=== PATIENT | female | born 1965 | race Caucasian/White ===

== ENCOUNTER 2019-03-25 22:17 | Emergency (ER) | payer OTHER ==
[~2019-03-25] VITALS: Ht 160 cm; Wt 58.6 kg
[~2019-03-25 22:17] MED LIST: TYLENOL 325MG325 MG PO; [UNRECOGNIZED DRUG - OTHER]; [UNRECOGNIZED DRUG - OTHER]
[2019-03-25 22:19] VITALS: TEMP 97.6
[2019-03-25 22:48] LABS: COLLECTION METHOD CLEAN CATCH
[2019-03-25 22:51] LABS: BASO % 0.3 % (0.0-2.0); EOS % 0.2 % (0-4.0); GRAN # 6.4 (1.4-6.5); GRAN % 72.4 % (42.2-75.2); HEMOGLOBIN 13.9 g/dl (12.5-16.0); LYMPH # 1.7 (1.2-3.4); LYMPH % 19.5 % (20.0-51.0); MEAN CELL VOLUME 81 fl (80.0-100.0); MEAN CORPUSCULAR HEMOGLOBIN 26 pg (27.0-31.0); MEAN CORPUSCULAR HGB CONC 32 g/dl (33.0-37.0); MEAN PLATELET VOLUME 13.6 fl (7.4-10.4); MONO # 0.7 (0.1-0.6); MONO % 7.4 % (1.7-9.3); RED BLOOD COUNT 5.29 M/mm3 (4.10-5.30); REDCELL DISTRIBUTION WIDTH-CV 13.9 % (11.5-14.5)
[2019-03-25 22:55] LABS: PH 7 (5-8); SQUAMOUS EPITHELIAL 0-2 /hpf; URINE APPEARANCE Clear; URINE BACTERIA None Seen /hpf; URINE BILIRUBIN Negative (NEGATIVE); URINE BLOOD 3+ (NEGATIVE); URINE COLOR Straw; URINE GLUCOSE Negative (NEGATIVE); URINE KETONE Negative (NEGATIVE); URINE LEUKOCYTE ESTERASE Negative (NEGATIVE); URINE NITRATE Negative (NEGATIVE); URINE PROTEIN(semi-quant) Negative (NEGATIVE); URINE RBC 0-2 /hpf; URINE UROBILINOGEN Negative (NEGATIVE)
[2019-03-25 23:04] LABS: ALANINE AMINOTRANSFERASE 25 U/L (9-52); ALBUMIN 4.2 gm/dL (3.5-5.0); ALKALINE PHOSPHATASE 63 U/L (50-136); ANION GAP 12 mmol/L (7-16); AST,SGOT 27 U/L (15-37); BILIRUBIN,TOTAL 0.9 mg/dL (0.0-1.0); BLOOD UREA NITROGEN 13 mg/dL (7-17); CALCIUM 9.4 mg/dL (8.4-10.2); CARBON DIOXIDE 24 mmol/L (22-30); CHLORIDE 103 mmol/L (98-107); CREATININE, serum 0.58 (0.52-1.25); GLUCOSE 112 mg/dL (74-106); SODIUM 139 mmol/L (137-145)
[2019-03-25 23:09] LABS: C-REACTIVE PROTEIN < 0.5 mg/dL (0.0-0.9)
[2019-03-25 23:13] LABS: PLATELET COUNT 42 K/mm3 (130-400)
[2019-03-26 01:23] VITALS: BP 108/68; PULSE 682
== END 2019-03-26 01:25 | disposition home or self-care (01) ==
LOC: COL.ER 22:17
PROVIDERS: Family Medicine
DX: N95.0 Postmenopausal bleeding (principal); Z85.42 Personal history of malignant neoplasm of other parts of uterus
CPT/HCPCS: J7120; Q9967

== ENCOUNTER 2019-04-03 11:29 | Emergency (ER) | payer OTHER ==
[~2019-04-03] VITALS: Ht 160 cm; Wt 58.6 kg
[2019-04-03 11:55] VITALS: TEMP 98.1
[2019-04-03] MEDS ORDERED: PROBIOTIC FORMU1 CAP PO (14:37)
[2019-04-03] MEDS ORDERED: VITAMIN D 1001000 IU PO (14:38)
[2019-04-03] MEDS ORDERED: PREDNISONE 5MG5 MG (14:38)
[2019-04-03] MEDS ORDERED: RAYOS5 MG (14:39)
[2019-04-03 15:37] LABS: BASO # 0.1 (0.0-0.2); BASO % 0.3 % (0.0-2.0); GRAN # 16.4 (1.4-6.5); GRAN % 92.4 % (42.2-75.2); HEMATOCRIT 23.8 % (37.0-47.0); HEMOGLOBIN 7.6 g/dl (12.5-16.0); LYMPH # 0.6 (1.2-3.4); LYMPH % 3.2 % (20.0-51.0); MEAN CELL VOLUME 83 fl (80.0-100.0); MEAN CORPUSCULAR HEMOGLOBIN 26 pg (27.0-31.0); MEAN CORPUSCULAR HGB CONC 32 g/dl (33.0-37.0); MEAN PLATELET VOLUME 12.5 fl (7.4-10.4); MONO # 0.5 (0.1-0.6); MONO % 2.7 % (1.7-9.3); PLATELET COUNT 88 K/mm3 (130-400); RED BLOOD COUNT 2.87 M/mm3 (4.10-5.30); REDCELL DISTRIBUTION WIDTH-CV 14.6 % (11.5-14.5)
[2019-04-03 15:53] LABS: ALBUMIN 3.7 gm/dL (3.5-5.0); BILIRUBIN,TOTAL 0.5 mg/dL (0.0-1.0); CALCIUM 8.7 mg/dL (8.4-10.2); CREATININE, serum 0.56 (0.52-1.25); POTASSIUM 3.6 mmol/L (3.4-5.0); TOTAL PROTEIN 6.9 gm/dL (6.4-8.2)
[2019-04-03 17:20] VITALS: BP 106/62; PULSE 83
[2019-04-04] MEDS ORDERED: PREDNISONE20 MG PO ×2 (14:24)
[2019-04-04] MEDS ORDERED: ZOFRAN 4MG T4 MG/TAB PO (14:28)
== END 2019-04-03 17:20 | disposition home or self-care (01) ==
LOC: COL.ER 11:29
PROVIDERS: Physician Assistant
DX: R51 Headache (principal); Z86.2 Personal history of diseases of the blood and blood-forming organs and certain disorders involving the immune mechanism
CPT/HCPCS: J1170; J2405; J7030

== ENCOUNTER 2019-04-04 13:25 | Inpatient (IN) | payer OTHER ==
[~2019-04-04] VITALS: Ht 160 cm; Wt 58.6 kg
[2019-04-04] VITALS (10 sets, daily range): BP systolic 99–115; BP diastolic 45–69; PULSE 76–95; TEMP 98.1–99.1
[~2019-04-04 13:25] MED LIST changes: +PREDNISONE 5MG5 MG; +PROBIOTIC FORMU1 CAP PO; +RAYOS5 MG; +VITAMIN D 1001000 IU PO
[2019-04-04] MEDS ORDERED: PREDNISONE20 MG PO ×2 (14:24)
[2019-04-04] MEDS ORDERED: ZOFRAN 4MG T4 MG/TAB PO (14:28)
[2019-04-04 14:46] LABS: BASO % 0.2 % (0.0-2.0); GRAN # 10.3 (1.4-6.5); LYMPH # 0.4 (1.2-3.4); LYMPH % 3.5 % (20.0-51.0); MEAN CELL VOLUME 83 fl (80.0-100.0); MEAN CORPUSCULAR HGB CONC 32 g/dl (33.0-37.0); MEAN PLATELET VOLUME 11.5 fl (7.4-10.4); MONO # 0.2 (0.1-0.6); MONO % 1.6 % (1.7-9.3); PLATELET COUNT 100 K/mm3 (130-400); RED BLOOD COUNT 2.35 M/mm3 (4.10-5.30); REDCELL DISTRIBUTION WIDTH-CV 14.7 % (11.5-14.5)
[2019-04-04 14:49] LABS: HEMATOCRIT 19.5 % (37.0-47.0); HEMOGLOBIN 6.2 g/dl (12.5-16.0); MEAN CORPUSCULAR HEMOGLOBIN 26 pg (27.0-31.0)
[2019-04-04 14:51] LABS: ALBUMIN 3.3 gm/dL (3.5-5.0); BILIRUBIN,TOTAL 0.3 mg/dL (0.0-1.0); CALCIUM 8.6 mg/dL (8.4-10.2); CREATININE, serum 0.56 (0.52-1.25); TOTAL PROTEIN 6.2 gm/dL (6.4-8.2)
--- NOTE | 2019-04-04 17:15 | NUR ---
Patient to room 222, vital signs done, assessment completed. Consent gone over and signed and patient understand procedure/transfusion taking place. 1758: Blood verified per Amy NOEL and started at this time.
[2019-04-04 20:29] LABS: INR 0.9 (0.8-3.0); PROTHROMBIN TIME 10.9 SECONDS (9.7-12.8)
[2019-04-05] VITALS (16 sets, daily range): BP systolic 100–138; BP diastolic 59–84; PULSE 72–95; TEMP 97.9–99.9
[2019-04-05 02:01] LABS: BASO % 0.1 % (0.0-2.0); EOS % 0.2 % (0-4.0); GRAN # 6.5 (1.4-6.5); GRAN % 70.6 % (42.2-75.2); LYMPH # 1.5 (1.2-3.4); LYMPH % 16.3 % (20.0-51.0); MEAN CELL VOLUME 83 fl (80.0-100.0); MEAN CORPUSCULAR HGB CONC 33 g/dl (33.0-37.0); MEAN PLATELET VOLUME 11.6 fl (7.4-10.4); MONO # 1.1 (0.1-0.6); PLATELET COUNT 86 K/mm3 (130-400); RED BLOOD COUNT 2.88 M/mm3 (4.10-5.30); REDCELL DISTRIBUTION WIDTH-CV 14.6 % (11.5-14.5)
[2019-04-05 02:05] LABS: HEMOGLOBIN 7.9 g/dl (12.5-16.0); MEAN CORPUSCULAR HEMOGLOBIN 27 pg (27.0-31.0)
--- NOTE | 2019-04-05 06:30 | NUR ---
Clifford BATTALION FIRE CHIEF here and updated on pt status. Reviewed lab results. Orders received to DC Valium po and give Benadryl 25mg po now with Pepcid pre-op. Orders received for EKG and to have 2 units PRBC's on hand. Vital signs taken and assessment complete. at bedside. Pt has been NPO since midnight. IV tubing changed and preop meds given. 0650:Cardiopulminary here and EKG complete. 0705:Augie from surgery here. Pt taken to OR via bed.
--- NOTE | 2019-04-05 09:00 | NUR ---
Initial visit attempt; Patient in surgical procedure, Front End Developer Designer spoke with her , offering God's blessings for good health for Eunice.
--- NOTE | 2019-04-05 09:35 | NUR ---
Pt to room 222 via bed. Report received from PACU. Pt alert and oriented. Denies any pain. 3 band aids to abdomen C/D/I. [place] catheter to DD and urine pale yellow and clear. Assessment complete. VSS, afebrile. Vaginal bleeding is scant. IV infusing NS at 125ml/hr without difficulty. O2 was on at 1L in PACU, decreased to 1/2 L and O2 sat 96%. Will continue to monitor. SCD's on at this time bilaterally. at bedside, denies any needs.
--- NOTE | 2019-04-05 15:13 | NUR ---
1300 PT SITTING UP IN BED TALKING WITH . PT ATE LUNCH AND DENIES BEING NAUSEOUS. DENIES PAIN AT THIS TIME. ABDOMINAL INCISIONS CDI WITH BANDAGES OVER THEM. SCDS ON. REGALADO CATHETER IN. VSS. CONTINUE WITH POC.
--- NOTE | 2019-04-05 15:15 | NUR ---
PT AWAKE AND WATCHING TV AT THIS TIME. THIS RN PASSING CARE TO SADIE DUNCAN. PT DENIES PAIN AT THIS TIME. IV TO INT AT THIS TIME.
[2019-04-06 04:30] VITALS: BP 105/61; PULSE 73; TEMP 98.6
[2019-04-06 07:29] LABS: BASO % 0.1 % (0.0-2.0); GRAN # 12.3 (1.4-6.5); LYMPH # 0.6 (1.2-3.4); LYMPH % 4.4 % (20.0-51.0); MEAN CELL VOLUME 83 fl (80.0-100.0); MEAN CORPUSCULAR HGB CONC 32 g/dl (33.0-37.0); MEAN PLATELET VOLUME 11.6 fl (7.4-10.4); MONO % 6.9 % (1.7-9.3); PLATELET COUNT 127 K/mm3 (130-400); RED BLOOD COUNT 3.31 M/mm3 (4.10-5.30); REDCELL DISTRIBUTION WIDTH-CV 14.9 % (11.5-14.5)
[2019-04-06 07:32] LABS: HEMATOCRIT 27.5 % (37.0-47.0); HEMOGLOBIN 8.9 g/dl (12.5-16.0); MEAN CORPUSCULAR HEMOGLOBIN 27 pg (27.0-31.0)
[2019-04-06 07:49] VITALS: BP 142/74; PULSE 80; TEMP 98.2
== END 2019-04-06 09:55 | disposition home or self-care (01) | DRG 742 ==
LOC: COL.ER 13:25 → OB 16:02
PROVIDERS: Nurse Practitioner; ADMIT Obstetrics & Gynecology
PROC: 0UT7FZZ Resection of Bilateral Fallopian Tubes, Via Natural or Artificial Opening With Percutaneous Endoscopic Assistance (ICD-10-PCS; 2019-04-05)
PROC: 0UT9FZZ Resection of Uterus, Via Natural or Artificial Opening With Percutaneous Endoscopic Assistance (ICD-10-PCS; principal; 2019-04-05 07:30)
PROC: 0UT2FZZ Resection of Bilateral Ovaries, Via Natural or Artificial Opening With Percutaneous Endoscopic Assistance (ICD-10-PCS; 2019-04-05 07:30)
DX: N95.0 Postmenopausal bleeding (principal); D62 Acute posthemorrhagic anemia; D69.3 Immune thrombocytopenic purpura; N85.9 Noninflammatory disorder of uterus, unspecified; E03.9 Hypothyroidism, unspecified; R51 Headache; Z79.52 Long term (current) use of systemic steroids
CPT/HCPCS: A4314; A9284; J1100; J2405; J2704; J2710; J3010; J7030; P9016